=== PATIENT | male | born 1945 | race Caucasian/White ===

== ENCOUNTER → 2017-04-19 | Outpatient (CLI) | payer MEDICARE, OTHER ==
[~2017-04-19] MED LIST: ALB0.5 INH; ALBU8.5H IH; AMLO-1 PO; AMLO-96 PO; AMLO-99 PO; ASC500 PO; ASCO-188 PO; ASCO250T86 PO; ASPI-1441 PO; ASPI-1471 PO; AZI250 PO; CAR6.25 PO; CARV12.577 PO; CARV12.578 PO; CIP500 PO; CLIN300C99 PO; DICL100G39 TOP; DOXY-179 PO; DOXY-181 PO; ESOM20CA31 PO; EZET1TAB55 PO; EZET1TAB81 PO; GLIM1TAB25 PO; HCTZ25 PO; HYDR-2946 PO; HYDR-2966 PO; IBUP-56 PO; JUNUVIA; LEV25 PO; LEV88 PO; LEVO-3 PO; LEVO88TA43 PO; LEVO88TA45 PO; LIS20 PO; LISI-347 PO; LISI-353 PO; LISI-362 PO; LISI-374 PO; LISI2.5T60 PO; LISI30TA49 PO; LOR5 PO; LOR7.5/325 PO; LOSA100T67 PO; LOVAZA1PT PO; METF-410 PO; METR-1 PO; METXR500 PO; MOX400 PO; NAPR220C12 PO; NITR0.4T3 SL; OME20PT PO; OMEG-23 PO; OMEG1CAP14 PO; OMEP-125 PO; ONDA4TAB PO; OXYC-865 PO; OXYGENHOME INH; PER PO; PNEU0.5D3 IM; PRED20TA6 PO; PRO500 PO; PROB500T31 PO; TADA20TA33 PO; TAM4 PO; TRIA10.8; VITE400 PO; ZIA10 PO; [UNRECOGNIZED DRUG - CODE] PO
== END ==
LOC: RESP 19:59
PROVIDERS: ATTEND Nurse Practitioner Family
DX: G47.33 Obstructive sleep apnea (adult) (pediatric) (principal); G47.36 Sleep related hypoventilation in conditions classified elsewhere; E66.3 Overweight

== ENCOUNTER → 2017-04-29 | Outpatient (CLI) | payer MEDICARE, OTHER | LOC: LAB 09:30 | PROVIDERS: ATTEND Nurse Practitioner Family | DX: E11.9 Type 2 diabetes mellitus without complications (principal); E03.9 Hypothyroidism, unspecified | CPT/HCPCS: 36415; 83036; 84443 ==

== ENCOUNTER → 2018-02-03 | Outpatient (CLI) | payer MEDICARE, OTHER ==
[~2018-02-03] MED LIST changes: +AMLO-111 PO; +AMLO-113 PO; -AMLO-96 PO; -AMLO-99 PO; +EPIN0.3P15 IM; -LOSA100T67 PO; +LOSA100T69 PO; -METF-410 PO; +METF-450 PO
[2018-02-03 09:42] LABS: PLATELET COUNT, AUTOMATED 221 K/uL (150-450)
[2018-02-03 10:21] LABS: LDL CHOLESTEROL 87 mg/dl
== END ==
LOC: LAB 09:17
PROVIDERS: ATTEND Nurse Practitioner Family
DX: Z12.5 Encounter for screening for malignant neoplasm of prostate (principal); E11.9 Type 2 diabetes mellitus without complications; E03.9 Hypothyroidism, unspecified; I10 Essential (primary) hypertension; E78.00 Pure hypercholesterolemia, unspecified
CPT/HCPCS: 36415; 83036; 84443; 85025; G0103; 82040; 82247; 82310; 82374; 82435; 82465; 82565; 82947; 83718; 84075; 84132; 84153; 84155; 84295; 84450; 84460; 84478; 84520

== ENCOUNTER → 2018-09-01 | Outpatient (CLI) | payer MEDICARE, OTHER ==
[~2018-09-01] MED LIST changes: -AMLO-111 PO; -AMLO-113 PO; +AMLO-125 PO; +AMLO-127 PO; -LOSA100T69 PO; +LOSA100T75 PO; -OMEP-125 PO; +OMEP-126 PO
[2018-09-01 11:47] LABS: PLATELET COUNT, AUTOMATED 231 K/uL (150-450)
--- NOTE | 2018-09-01 11:52 | EKG ---
FAC[place] [facility] [place]IENT NAME: GAIL SCOTT : [id number] MR: [id number] V: [id number] EXAM DATE: ORDERING PHYSICIAN: GARRISON ALANIS TECHNOLOGIST: BERTHA Murphy Reason : PRE-OP BACK Blood Pressure : / mmHG Vent. Rate : 062 BPM Atrial Rate : 062 BPM P-R Int : 178 ms QRS Dur : 092 ms QT Int : 432 ms P-R-T Axes : 024 062 051 degrees QTc Int : 438 ms Normal sinus rhythm Normal ECG When compared with ECG of 04-FEB-2017 14:10, No significant change was found Confirmed by GARRISON GILES ([id number]) on 09/02/2018 6:23:15 AM Referred By: ZEKE Confirmed By:GARRISON GILES
== END ==
LOC: LAB 10:59
PROVIDERS: ATTEND Anesthesiology
DX: Z01.812 Encounter for preprocedural laboratory examination (principal); Z01.810 Encounter for preprocedural cardiovascular examination; E11.9 Type 2 diabetes mellitus without complications; E03.9 Hypothyroidism, unspecified; M48.061 Spinal stenosis, lumbar region without neurogenic claudication
CPT/HCPCS: 36415; 82040; 82247; 82310; 82374; 82435; 82565; 82947; 83036; 84075; 84132; 84155; 84295; 84443; 84450; 84460; 84520; 85025; 93005

== ENCOUNTER → 2018-09-30 | Outpatient (CLI) | payer MEDICARE, OTHER ==
[~2018-09-30] MED LIST changes: +ATOR40TA69 PO
[2018-09-30 16:32] LABS: PLATELET COUNT, AUTOMATED 388 K/uL (150-450)
== END ==
LOC: LAB 15:34
PROVIDERS: ATTEND Nurse Practitioner Family
DX: E03.9 Hypothyroidism, unspecified (principal); R51 Headache
CPT/HCPCS: 36415; 82040; 82247; 82310; 82374; 82435; 82565; 82947; 84075; 84132; 84155; 84295; 84443; 84450; 84460; 84520; 85025; 85651; 86140

== ENCOUNTER → 2018-10-08 | Outpatient (CLI) | payer MEDICARE, OTHER ==
[~2018-10-08] MED LIST changes: +IOPAMIDOL 76% 100 ML INFUS BTL 0 ML ONE
== END ==
LOC: CT 07:13
PROVIDERS: ATTEND Nurse Practitioner Family
DX: Z02.9 Encounter for administrative examinations, unspecified (principal)
CPT/HCPCS: Q9967

== ENCOUNTER → 2018-10-29 | Outpatient (CLI) | payer MEDICARE, OTHER ==
[~2018-10-29] MED LIST changes: -IOPAMIDOL 76% 100 ML INFUS BTL 0 ML ONE; +IOPAMIDOL 76% 100 ML INFUS BTL 100 ML ONE
--- NOTE | 2018-10-29 13:43 | RADIOLOGY IMAGING REPORT ---
FACILITY: [facility] - [place] PATIENT NAME: Luciano Mitchell : 1945 MR: [id number] V: [id number] EXAM DATE: ORDERING PHYSICIAN: SAUMYA SEGURA TECHNOLOGIST: Location: [facility] - [place] Patient: Luciano Mitchell : 1945 Visit/Account:[id number] Date of Sevice: 10/29/2018 CT BRAIN WITH AND WITHOUT COMPARISONS: None. ADDITIONAL PERTINENT HISTORY: Headaches, new onset TECHNIQUE: Multiple axial images were obtained from the skull base to the vertex before and after th e IV administration of contrast. One of the following dose optimization techniques was utilized in t he performance of this exam: Automated exposure control; adjustment of the mA and/or kV according to the patient's size; or use of an iterative reconstruction technique. Specific details can be refere nced in the facility's radiology CT exam operational policy. CONTRAST: 75 ml of Isovue-370 FINDINGS: Midline shift: Negative Ventricles: Negative Brain parenchyma: Mild patchy hypoattenuation within the periventricular and subcortical white matte r, nonspecific but likely representing small vessel ischemic change on a chronic basis. No intraparen chymal hemorrhage or mass effect. Extra-axial spaces: Moderate cerebral atrophy. Pathologic enhancement: Negative Intracranial vasculature: Negative Osseous structures: Negative Paranasal sinuses and mastoid air cells: Mild mucosal thickening involving both maxillary sinuses. O therwise negative Surrounding soft tissues and orbits: Negative IMPRESSION: 1. Age related changes as described above. 2. No evidence of acute intracranial pathology. Report Dictated By: Rock Ernst MD at 10/29/2018 1:30 PM Report E-Signed By: Rock Ernst MD at 10/29/2018 1:34 PM WSN:[email or web address]
--- NOTE | 2018-10-29 13:55 | RADIOLOGY IMAGING REPORT ---
FACILITY: [facility] PATIENT NAME: Luciano Mitchell : 1945 MR: [id number] V: [id number] EXAM DATE: ORDERING PHYSICIAN: SAUMYA SEGURA TECHNOLOGIST: Location: [facility] - [place] Patient: Luciano Mitchell : 1945 Visit/Account:[id number] Date of Sevice: 10/29/2018 CT SINUS W/O CON COMPARISONS: None ADDITIONAL PERTINENT HISTORY: Headaches, new onset TECHNIQUE: Multiple axial images were obtained through the paranasal sinuses with coronal and sagitta l reformatted images. No IV contrast was administered. One of the following dose optimization techni ques was utilized in the performance of this exam: Automated exposure control; adjustment of the mA a nd/or kV according to the patient's size; or use of an iterative reconstruction technique. Specific details can be referenced in the facility's radiology CT exam operational policy. FINDINGS: Maxillary sinuses: Mild mucosal thickening involving both maxillary sinuses.. Frontal sinuses: Negative. Ethmoid air cells: Negative. Sphenoid sinuses:Negative. Nasal septum: Moderate nasal septal deviation to the right. 5 mm bony spur projected to the right.. Drainage pathways: Patent Paranasal variance: Small bilateral guero bullosa without inflammatory change. Medial orbital caban, cribriform plate, and orbital floors: Negative. Visualized bony skull base Negative. Visualized intracranial contents: Negative. Orbits and surrounding soft tissues: Negative. IMPRESSION: 1. Moderate nasal septal deviation to the right with a 5 mm bony spur projected to the right. 2. Mild nonobstructive paranasal sinus disease involving both maxillary sinuses. Report Dictated By: Rock Ernst MD at 10/29/2018 1:43 PM Report E-Signed By: Rock Ernst MD at 10/29/2018 1:46 PM WSN:[email or web address]
== END ==
LOC: CT 00:50
PROVIDERS: ATTEND Nurse Practitioner Family
DX: J34.2 Deviated nasal septum (principal); J32.8 Other chronic sinusitis
CPT/HCPCS: 70470; 70486; Q9967